=== PATIENT | male | born 1950 | race Caucasian/White ===

== ENCOUNTER 2020-11-01 11:05 | Day surgery (SDC) | payer OTHER ==
[2020-10-24 12:22] LABS: CLARITY,URINE CLEAR (Clear); COLOR,URINE YELLOW (Yellow); GLUCOSE, URINE NEGATIVE (Neg); KETONES,URINE NEGATIVE (Neg); LEUKOCYTE ESTERASE ,URINE TRACE (Neg); NITRITES, URINE NEGATIVE (Neg); OCCULT BLOOD,URINE NEGATIVE (Neg); PROTEIN,URINE NEGATIVE (Neg); UROBILINOGEN,URINE 0.2 E.U/dL (0.2-1.0)
[2020-10-24 12:26] LABS: BASOPHILS % (AUTO) 0.7 % (0-1); EOSINOPHILS # (AUTO) 0.1 X10'3 (0-0.9); LYMPHOCYTES # (AUTO) 1.4 X10'3 (1.1-4.8); LYMPHOCYTES % (AUTO) 33.3 % (21-51); MEAN CORPUSCULAR HEMOGLOBIN 31.6 PG (27.0-31.0); MEAN CORPUSCULAR HGB CONC 33.2 g/dL (33.0-36.5); MEAN CORPUSCULAR VOLUME 95.1 FL (78-98); MONOCYTES # (AUTO) 0.4 X10'3 (0-0.9); MONOCYTES % (AUTO) 8.9 % (2-12); NEUTROPHILS # (AUTO) 2.2 X10'3 (1.8-7.7); NEUTROPHILS % (AUTO) 54.1 % (42-75); PRE OP HEMATOCRIT 50.3 % (42.0-52.0); PRE OP HEMOGLOBIN 16.7 g/dL (14.0-17.9); PRE OP PLATELET COUNT 108 X10'3 (140-440); RED BLOOD COUNT 5.28 X10'6 (4.70-6.10); RED CELL DISTRIBUTION WIDTH 15.1 % (11.5-14.5)
[2020-10-24 12:32] LABS: ALBUMIN 3.5 G/DL (3.4-5.0); ALBUMIN/GLOBULIN RATIO 1.1 (1.1-1.5); ALKALINE PHOSPHATASE 116 IU/L (46-116); BLOOD UREA NITROGEN 8 MG/DL (7-18); CALCIUM 9.4 MG/DL (8.5-10.1); CHLORIDE 106 MMOL/L (99-107); PRE OP ALT 30 U/L (30-65); PRE OP ANION GAP 6 (8-16); PRE OP AST 25 U/L (10-37); PRE OP BILIRUB, TOTAL 0.8 MG/DL (0.0-1.0); PRE OP GLUCOSE 84 MG/DL (70-104); PRE OP POTASSIUM 4.2 MMOL/L (3.4-5.1); PRE OP SODIUM 144 MMOL/L (135-145); TOTAL CARBON DIOXIDE 32.5 MMOL/L (24-32); TOTAL PROTEIN 6.7 G/DL (6.4-8.2); eGFR > 90 ML/MIN
[2020-10-24 12:53] LABS: UA COLLECTION TYPE CLN CATCH MIDSTREAM
[2020-10-24 12:54] LABS: BACTERIA,URINE FEW /HPF (Neg); RBC,URINE NONE SEEN /HPF (0-2); SQUAMOUS EPITHELIAL CELL,UR FEW /LPF (FEW)
[2020-10-24 12:55] LABS: MUCUS STRANDS FEW /LPF (Neg)
[2020-11-01] VITALS (7 sets, daily range): BP systolic 127–160; BP diastolic 78–88
[~2020-11-01] VITALS: Ht 185.4 cm; Wt 100.0 kg
[~2020-11-01 11:05] MED LIST: ASPI81TA47 PO; BACL10TA2 PO; CHOL20004 PO; DOCU100C40 PO; FOLI0.4T14 PO; GABA600T13 PO; LEVO75TA PO; LORA-657 PO; MULT-1085 PO; OMEG-79 PO; OMEP20TA5 PO; SENN8.6T19 PO; VITC500T PO; ZINC50TA67 PO; ceFAZolin 2gm in dextrose, iso 50 ML IV ONE; famotidine 20mg tablet PO ONE; ringers solution, lacted 1,000 ML IV SCH
[2020-11-01] MEDS ORDERED: sevoflurane 250ml liquid IH ONE (12:22)
[2020-11-01] MEDS ORDERED: neostigmine methylsulfate 1 MG/ML 10ml vial ONE (12:22)
[2020-11-01] MEDS ORDERED: fentaNYL/PF 50MCG/1 ML 2ML syringe ONE (12:27)
[2020-11-01] MEDS ORDERED: midazolam 2 mg/2 ml injection ONE (12:28)
[2020-11-01] MEDS ORDERED: BUPIVAcaine/PF 2.5 mg/ml (0.25%) 30ml vial ONE (12:44)
[2020-11-01] MEDS ORDERED: glycopyrrolate 0.2mg/ml inj ONE (12:50)
[2020-11-01] MEDS ORDERED: propofol inj 20 ML IV ONE (12:50)
[2020-11-01] MEDS ORDERED: LIDOcaine 2% (20mg/ml) 5ml vial ONE (12:50)
[2020-11-01] MEDS ORDERED: proCHLORperazine 10 MG/2 ml inj IV PRN (12:55)
[2020-11-01] MEDS ORDERED: HYDROmorphone/PF 0.2 MG/ML SYRINGE IV PRN ×2 (12:55)
[2020-11-01] MEDS ORDERED: morphine 4 MG/ML inj SYRINge IV PRN (12:55)
[2020-11-01] MEDS ORDERED: morphine 2 MG/ML inj. syringe IV PRN (12:55)
[2020-11-01] MEDS ORDERED: hydrALAZINE 20mg/ml inj. IV PRN (12:55)
[2020-11-01] MEDS ORDERED: acetaminophen 1,000mg/100ml IV 100 ML IV PRN (12:55)
[2020-11-01] MEDS ORDERED: ondansetron/PF 4mg/2ml inj IV PRN (12:55)
[2020-11-01] MEDS ORDERED: meperidine/PF 25mg/ml syringe IV PRN (12:55)
[2020-11-01] MEDS ORDERED: ringers solution, lacted 1,000 ML IV SCH (12:55)
[2020-11-01] MEDS ORDERED: ondansetron/PF 4mg/2ml inj ONE (13:46)
[2020-11-01] MEDS ORDERED: dexamethasone sod phosphate 4mg/ml inj. ONE (13:46)
[2020-11-01] MEDS ORDERED: morphine 10mg/ml inj. ONE (13:46)
--- NOTE | 2020-11-01 14:00 | NUR ---
ADMITTED TO PACU FROM OR ACCOMPANIED BY ANESTHESIA. INTIAL PHYSICAL ASSESSMENT DONE AND RECORDED. REPORT RECEIVED FROM ANESTHESIA.
--- NOTE | 2020-11-01 15:05 | NUR ---
DISCHARGE CRITERIA MET, DISCHARGE INSTRUCTIONS GIVEN, DEMONSTRATES VERBAL UNDERSTANDING. DISCHARGED HOME IN GOOD CONDITION.
== END 2020-11-01 15:05 | disposition home or self-care (01) ==
LOC: PRE-OP 11:05 → PAS 15:05
PROVIDERS: ATTEND Podiatrist Foot & Ankle Surgery
DX: M20.42 Other hammer toe(s) (acquired), left foot (principal); M20.5X2 Other deformities of toe(s) (acquired), left foot; M19.90 Unspecified osteoarthritis, unspecified site; K21.9 Gastro-esophageal reflux disease without esophagitis; Z79.82 Long term (current) use of aspirin; Z20.828 Contact with and (suspected) exposure to other viral communicable diseases; Z87.891 Personal history of nicotine dependence; Z72.89 Other problems related to lifestyle; F12.90 Cannabis use, unspecified, uncomplicated; Z79.899 Other long term (current) drug therapy; Z98.890 Other specified postprocedural states; Z82.49 Family history of ischemic heart disease and other diseases of the circulatory system; Z80.9 Family history of malignant neoplasm, unspecified
CPT/HCPCS: 28285; 28298; 36415; 73620; 76000; 80053; 81001; 82948; 85025; 87088; 87635; 93005; A6223; C1713; J1100; J2001; J2250; J2270; J2405; J2704; J2710; J3010; J3490; J7120; L4360; A4215; A4618; A6253; A6449; A7000